=== PATIENT | male | born 1935 | race Caucasian/White ===

== ENCOUNTER 2016-09-26 08:46 | Day surgery (SDC) | payer OTHER ==
[~2016-09-26] VITALS: Ht 152.4 cm; Wt 59.0 kg
[~2016-09-26 08:46] MED LIST: CEFAZOLIN SOD 1 GM/ ISO 50 ML PREMIX IV ONE
[2016-09-26 09:16] VITALS: O2SAT 100
[2016-09-26] MEDS ORDERED: BUPIVACAINE /PF 0.25% 30 ML VIAL INJ ONE (14:00)
[2016-09-26] MEDS ORDERED: SEVOFLURANE 15 MIN GAS INH ONE (14:00)
[2016-09-26] MEDS ORDERED: ONDANSETRON HCL 4 MG/2 ML VIAL ONE (14:00)
[2016-09-26] MEDS ORDERED: PROPOFOL 200MG/ 20ML VIAL (DIPRIVAN) IV ONE (14:00)
[2016-09-26] MEDS ORDERED: fentaNYL CITRATE 250 MCG/5 ML AMP ONE (14:00)
[2016-09-26] MEDS ORDERED: MIDAZOLAM HCL 5 MG/5 ML VIAL ONE (14:00)
[2016-09-26] MEDS ORDERED: LR 1,000 ML IV.SOLN IV ONE (14:00)
[2016-09-26] MEDS ORDERED: KETOROLAC TROMETHAMINE 30 MG VIAL ONE (14:00)
[2016-09-26] MEDS ORDERED: NS IRRIG SOLN 1000 ML IR ONE (14:00)
[2016-09-26] MEDS ORDERED: DEXAMETHASONE SOD PHOSPHATE 4 MG/ML VIAL ONE (14:00)
[2016-09-26] MEDS ORDERED: ROCURONIUM BROMIDE 10 MG/ML (ZEMURON) ONE (14:00)
[2016-09-26] MEDS ORDERED: ISOSULFAN BLUE 5 ML VIAL (LYMPHAZURIN) ONE (14:00)
[2016-09-26] MEDS ORDERED: D5/0.45 NS 1,000 ML IV SCH (14:14)
[2016-09-26] MEDS ORDERED: HYDROcodone/ACETAMIN 5-325 MG TAB (NORCO/ VICODIN) PO PRN ×2 (14:15)
[2016-09-26] MEDS ORDERED: HYDROmorphone 1 MG INJ. 1 MG/ML AMPUL IVP PRN ×2 (14:15→14:30)
[2016-09-26] MEDS ORDERED: LR 1,000 ML IV SCH (14:24)
[2016-09-26] MEDS ORDERED: MEPERIDINE HCL/PF 25 MG/ML DISP.SYRIN IVP PRN (14:30)
[2016-09-26] MEDS ORDERED: HYDROmorphone 2 MG/ML VIAL IVP PRN ×2 (14:30)
[2016-09-26 15:15] VITALS: BP 142/82; PULSE 77; RESP 16
[2016-09-26] MEDS ORDERED: ACETAMINOPHEN 500 MG TABLET PO ONE (16:00)
[2016-09-26] MEDS ORDERED: ACETAMINOPHEN 500 MG TABLET ONE (16:01)
== END 2016-09-26 16:55 | disposition home or self-care (01) ==
LOC: SDS 08:46 → EDSTATUS 13:05 → SDS 16:55
PROVIDERS: ATTEND Colon & Rectal Surgery
DX: C43.61 Malignant melanoma of right upper limb, including shoulder (principal)
CPT/HCPCS: 13121; 24071; 38525; 78195; 88305; 88307; A9541; J0690; J1100; J1170; J1885; J2250; J2405; J2704; J3010; J3490; J7120; Q9968; 88313; 88341; 88342

== ENCOUNTER 2018-09-07 09:14 | Inpatient (IN) | payer OTHER ==
[~2018-09-07] VITALS: Ht 152.4 cm; Wt 58.1 kg
[2018-09-07 09:16] VITALS: BP_SYST 155
[2018-09-07] MEDS ORDERED: NACL 0.9% 1,000 ML IV ONE ×2 (10:00→12:45)
[2018-09-07] MEDS ORDERED: PIPERACILLIN/TAZO 3.38 GM in NS 50 ML IV ONE (10:00)
[2018-09-07 10:08] LABS: BASOPHILS # (AUTO) 0.1 K/uL (0.0-0.2); BASOPHILS % (AUTO) 1.5 % (0.0-2.0); EOSINOPHILS % (AUTO) 0.1 % (0.0-4.0); HEMATOCRIT 40.3 % (36-54); HEMOGLOBIN 13.4 g/dL (14.0-18.0); LYMPHOCYTES # (AUTO) 1.1 K/uL (1.0-5.5); LYMPHOCYTES % (AUTO) 15.6 % (20.5-51.5); MEAN CORPUSCULAR HEMOGLOBIN 30 pg (27-31); MEAN CORPUSCULAR HGB CONC 33 % (32-36); MEAN CORPUSCULAR VOLUME 91 fL (79.0-98.0); MONOCYTES # (AUTO) 0.4 K/uL (0.0-1.0); MONOCYTES % (AUTO) 4.9 % (1.7-9.3); NEUTROPHILS # (AUTO) 5.7 K/uL (1.8-7.7); NEUTROPHILS % (AUTO) 77.9 % (40.0-70.0); PLATELET COUNT (AUTO) 256 K/uL (130-430); RED BLOOD CELL COUNT(AUTO) 4.44 MIL/uL (4.2-6.2); RED CELL DISTRIBUTION WIDTH 13.2 % (9.0-15.0); WHITE BLOOD COUNT (AUTO) 7.3 K/uL (4.8-10.8)
[2018-09-07 10:19] LABS: ANION GAP 14 (5-15); CHLORIDE 104 mmol/L (98-107); CREATININE 1.53 mg/dL (0.55-1.30); GLUCOSE 164 mg/dL (70-99); POTASSIUM 4.2 mmol/L (3.5-5.1); SODIUM SERUM 143 mmol/L (136-145); UREA NITROGEN, BLOOD 49 mg/dL (8-21)
[2018-09-07 10:24] LABS: PROTHROMBIN TIME 10.2 SECS (9.5-12.5)
[2018-09-07 10:25] LABS: ALANINE AMINOTRANSFERASE 20 U/L (12-78); ALBUMIN 3.2 g/dL (3.4-4.8); ASPARTATE AMINOTRANSFERASE 24 U/L (10-37); LIPASE 133 U/L (73-393); TOTAL BILIRUBIN 0.8 mg/dL (0.0-1.0)
[2018-09-07] MEDS ORDERED: ONDANSETRON HCL 4 MG/2 ML VIAL IVP ONE (10:45)
[2018-09-07] MEDS ORDERED: LORazepam 2 MG/ML VIAL (FOR ER USE) IVP ONE (10:45)
[2018-09-07] MEDS ORDERED: PIPERACILLIN/TAZOBACTAM 3.375 GM/VIAL (ZOSYN) IV ONE (11:22)
[2018-09-07] MEDS ORDERED: LOVA40TA75 PO (11:55)
[2018-09-07] MEDS ORDERED: ONDA8TAB9 PO (11:55)
[2018-09-07] MEDS ORDERED: IBUP-1970 PO (11:55)
[2018-09-07] MEDS ORDERED: PIOG30TA70 PO (11:55)
[2018-09-07] MEDS ORDERED: GLIP5TAB26 PO (11:55)
[2018-09-07] MEDS ORDERED: SODI15PO2 PO (11:55)
[2018-09-07] MEDS ORDERED: NEU100 PO (11:55)
[2018-09-07] MEDS ORDERED: SITA100T11 PO (11:55)
[2018-09-07] MEDS ORDERED: LOSA50TA3 PO (11:55)
[2018-09-07] MEDS ORDERED: AMLO5TAB4 PO (11:55)
[2018-09-07 12:02] LABS: BILIRUBIN,URINE 1+ (NEGATIVE); CLARITY/URINE CLEAR (CLEAR); COLOR,URINE YELLOW (YELLOW); GLUCOSE,URINE NEGATIVE (NEGATIVE); KETONES,URINE 3+ (NEGATIVE); LEUKOCYTE ESTERASE ,URINE NEGATIVE (NEGATIVE); NITRITE, URINE NEGATIVE (NEGATIVE); PH,URINE 5.5 (5.0-8.0); PROTEIN URINE 1+ (NEGATIVE); UROBILINOGEN,URINE 0.2 (0.2-1.0)
[2018-09-07 12:04] LABS: BLOOD, URINE TRACE (NEGATIVE)
[2018-09-07 12:22] LABS: BACTERIA,URINE FEW /HPF (None Seen); WBC,URINE 0-3 /HPF (0-3)
[2018-09-07 13:57] VITALS: BP_SYST 137
[2018-09-07 13:59] VITALS: BP_SYST 137
[2018-09-07] MEDS: PIPERACILLIN/TAZO 3.375/DEX-IS 50 ML IV SCH ×2 (16:44→22:34)
[2018-09-07 16:57] VITALS: BP_SYST 130
[2018-09-07] MEDS ORDERED: ACETAMINOPHEN 325 MG TABLET PO PRN (17:15)
[2018-09-07] MEDS ORDERED: METOCLOPRAMIDE HCL 10 MG/2 ML VIAL IVP PRN (17:15)
[2018-09-07] MEDS ORDERED: MORPHINE 4 MG/ML INJ. SYRINGE IVP PRN ×2 (17:15)
[2018-09-07] MEDS ORDERED: ONDANSETRON HCL 4 MG/2 ML VIAL IVP PRN (17:15)
[2018-09-07] MEDS: D5NS 1,000 ML IV SCH (17:38)
[2018-09-07] MEDS: SIMVASTATIN 20 MG TABLET PO SCH (18:00)
[2018-09-07 20:00] VITALS: BP_SYST 142
[2018-09-07] MEDS: GABAPENTIN 100 MG CAPSULE PO SCH (21:09)
[2018-09-08 01:26] VITALS: BP_SYST 149
[2018-09-08] MEDS: PIPERACILLIN/TAZO 3.375/DEX-IS 50 ML IV SCH ×4 (03:49→23:25)
[2018-09-08] MEDS: D5NS 1,000 ML IV SCH (03:49)
[2018-09-08] MEDS ORDERED: MINERAL OIL 133 ML ENEMA RC ONE (07:30)
[2018-09-08 08:32] VITALS: BP_SYST 139
[2018-09-08] MEDS ORDERED: fentaNYL CITRATE/PF 100 MCG/2 ML AMP ONE (08:40)
[2018-09-08] MEDS ORDERED: BENZOCAINE 20% 0.5mL UD SPRAY MM ONE (08:41)
[2018-09-08] MEDS: MIDAZOLAM HCL 5 MG/5 ML VIAL ONE ×2 (08:50→08:52)
[2018-09-08] MEDS ORDERED: PANTOPRAZOLE SODIUM 40 MG/VIAL (PROTONIX) IVP ONE (09:30)
[2018-09-08] MEDS: LOSARTAN POTASSIUM 50 MG TABLET (COZAAR) PO SCH (11:31)
[2018-09-08] MEDS: glipiZIDE XL 5 MG TAB ( GLUCOTROL XL) PO SCH (11:31)
[2018-09-08] MEDS: GABAPENTIN 100 MG CAPSULE PO SCH ×2 (11:32→20:05)
[2018-09-08] MEDS: amLODIPine BESYLATE 5 MG TABLET PO SCH (11:32)
[2018-09-08] MEDS ORDERED: INSULIN LISPRO SLIDING SCALE 100 UNITS/ML VIAL (humaLOG) SUBCUT PRN (12:00)
[2018-09-08 12:02] VITALS: BP_SYST 124
[2018-09-08] MEDS ORDERED: D5W 1,000 ML IV PRN (13:00)
[2018-09-08] MEDS ORDERED: GLUCOSE 15 GM GEL (in 37.5 GM TUBE) PO PRN (13:00)
[2018-09-08] MEDS ORDERED: DEXTROSE 50%-WATER 50 ML DISP.SYRIN IVP PRN (13:00)
[2018-09-08 16:02] VITALS: BP_SYST 110
[2018-09-08] MEDS: SIMVASTATIN 20 MG TABLET PO SCH (17:55)
[2018-09-08 20:00] VITALS: BP_SYST 111
[2018-09-08] MEDS: INSULIN ASPART 100 UNITS/ML, 10 ML VIAL SUBCUT PRN (20:16)
[2018-09-09] VITALS: BP_SYST 102
[2018-09-09] MEDS: PIPERACILLIN/TAZO 3.375/DEX-IS 50 ML IV SCH ×2 (04:01→11:09)
[2018-09-09 07:06] LABS: BASOPHILS % (AUTO) 0.6 % (0.0-2.0); EOSINOPHILS # (AUTO) 0.1 K/uL (0.0-0.4); EOSINOPHILS % (AUTO) 1.9 % (0.0-4.0); HEMATOCRIT 32.5 % (36-54); HEMOGLOBIN 10.8 g/dL (14.0-18.0); LYMPHOCYTES # (AUTO) 1.1 K/uL (1.0-5.5); LYMPHOCYTES % (AUTO) 18.4 % (20.5-51.5); MEAN CORPUSCULAR HEMOGLOBIN 30 pg (27-31); MEAN CORPUSCULAR HGB CONC 33 % (32-36); MEAN CORPUSCULAR VOLUME 92 fL (79.0-98.0); MONOCYTES # (AUTO) 0.4 K/uL (0.0-1.0); MONOCYTES % (AUTO) 6.8 % (1.7-9.3); NEUTROPHILS # (AUTO) 4.3 K/uL (1.8-7.7); NEUTROPHILS % (AUTO) 72.3 % (40.0-70.0); PLATELET COUNT (AUTO) 196 K/uL (130-430); RED BLOOD CELL COUNT(AUTO) 3.55 MIL/uL (4.2-6.2); RED CELL DISTRIBUTION WIDTH 13.4 % (9.0-15.0); WHITE BLOOD COUNT (AUTO) 5.9 K/uL (4.8-10.8)
[2018-09-09 07:20] LABS: ALANINE AMINOTRANSFERASE 13 U/L (12-78); ALBUMIN 2.1 g/dL (3.4-4.8); ANION GAP 4 (5-15); ASPARTATE AMINOTRANSFERASE 23 U/L (10-37); CALCIUM 7.7 mg/dL (8.4-11.0); CHLORIDE 112 mmol/L (98-107); CREATININE 1.22 mg/dL (0.55-1.30); GLUCOSE 60 mg/dL (70-99); POTASSIUM 3.4 mmol/L (3.5-5.1); SODIUM SERUM 143 mmol/L (136-145); TOTAL BILIRUBIN 0.8 mg/dL (0.0-1.0); UREA NITROGEN, BLOOD 23 mg/dL (8-21)
[2018-09-09] MEDS ORDERED: POTASSIUM CHLORIDE 20 MEQ TAB.PRT.SR PO ONE (08:30)
[2018-09-09] MEDS: GABAPENTIN 100 MG CAPSULE PO SCH (08:38)
[2018-09-09] MEDS: glipiZIDE XL 5 MG TAB ( GLUCOTROL XL) PO SCH (08:38)
[2018-09-09] MEDS: amLODIPine BESYLATE 5 MG TABLET PO SCH (08:39)
[2018-09-09] MEDS: LOSARTAN POTASSIUM 50 MG TABLET (COZAAR) PO SCH (08:39)
[2018-09-09] MEDS ORDERED: PANTOPRAZOLE SODIUM 40 MG/VIAL (PROTONIX) IVP SCH (09:00)
[2018-09-09 09:29] VITALS: BP_SYST 114
[2018-09-09 10:09] VITALS: BP_SYST 102
[2018-09-09] MEDS ORDERED: PRO40 PO (10:17)
[2018-09-09] MEDS ORDERED: AMOX500C2 PO (10:18)
[2018-09-09] MEDS ORDERED: METR500T PO (10:18)
[2018-09-09] MEDS ORDERED: MULT-976 PO (10:19)
[2018-09-09] MEDS ORDERED: CLAR500T PO (10:20)
[2018-09-09] MEDS: INSULIN ASPART 100 UNITS/ML, 10 ML VIAL SUBCUT PRN (11:11)
[2018-09-09 11:35] VITALS: BP_SYST 102
== END 2018-09-09 13:25 | disposition home or self-care (01) | DRG 392 ==
LOC: SED 09:14 → STU 12:46
PROVIDERS: ADMIT Internal Medicine Hospice and Palliative Medicine; ATTEND Internal Medicine Hospice and Palliative Medicine
PROC: 0DB78ZX Excision of Stomach, Pylorus, Via Natural or Artificial Opening Endoscopic, Diagnostic (ICD-10-PCS; 2018-09-08)
PROC: 0DB68ZX Excision of Stomach, Via Natural or Artificial Opening Endoscopic, Diagnostic (ICD-10-PCS; 2018-09-08)
PROC: 0DB98ZX Excision of Duodenum, Via Natural or Artificial Opening Endoscopic, Diagnostic (ICD-10-PCS; principal; 2018-09-08 08:30)
DX: K29.60 Other gastritis without bleeding (principal); C79.9 Secondary malignant neoplasm of unspecified site; E44.1 Mild protein-calorie malnutrition; I10 Essential (primary) hypertension; K59.00 Constipation, unspecified; K29.80 Duodenitis without bleeding; E86.0 Dehydration; K31.89 Other diseases of stomach and duodenum; D64.9 Anemia, unspecified; E11.649 Type 2 diabetes mellitus with hypoglycemia without coma; Z90.79 Acquired absence of other genital organ(s); Z88.5 Allergy status to narcotic agent; Z79.899 Other long term (current) drug therapy; Z79.84 Long term (current) use of oral hypoglycemic drugs; Z68.25 Body mass index [BMI] 25.0-25.9, adult
CPT/HCPCS: 36415; 43239; 71045; 80053; 81000-TC; 82962; 83605; 83690-TC; 85025; 85610-TC; 87040-TC; 88305; 88312; 88313; 88341; 88342; 93005; 96361; 96365; 96375; 99285; C9113; G0378; J1815; J2060; J2250; J2270; J2405; J2543; J3010; J7030; J7042